=== PATIENT | male | born 1940 | race Two or more races ===

== ENCOUNTER 2019-11-23 17:40 | Inpatient (IN) | payer OTHER, MEDICAID ==
[~2019-11-23] VITALS: Ht 170.2 cm; Wt 94.4 kg
[~2019-11-23 17:40] MED LIST: ASP81EC PO; CARV25TA PO; CLOP75TA28 PO; FERR325T47 PO; FEXO-38 PO; FOLI1TAB6 PO; FURO40TA4 PO; GEMF600T7 PO; GLYB5TAB66 PO; ISOS20TA56 PO; LANTUS SC; METO-281 PO; NOVOLOG SC; NYSTPOW9; PHEN100C70 PO; POTA8TAB2 PO; RAMI5CAP18 PO; TERA2CAP45 PO; TRAM50TA2 PO
[2019-11-23 19:01] LABS: Basophils # (auto) 0.1 10 ^3/uL (0-0.2); Basophils % (auto) 0.8 % (0.0-2.0); Eosinophils # (auto) 0.2 10 ^3/uL (0-0.8); Eosinophils % (auto) 2.3 % (0.0-7.0); Hematocrit 35.9 % (41.0-53.0); Hemoglobin 12.3 g/dL (13.5-17.5); Lymphocytes # (auto) 1.4 10 ^3/uL (0.4-5.4); Lymphocytes % (auto) 20.6 % (10.0-50.0); Mean Corpuscular Hemoglobin 33.1 pg (28.0-32.0); Mean Corpuscular Hgb Conc. 34.2 g/dL (32.0-36.0); Mean Corpuscular Volume 96.6 fL (80.0-100.0); Monocytes # (auto) 0.5 10 ^3/uL (0-1.3); Monocytes % (auto) 8.2 % (0.0-12.0); Neutrophils # (auto) 4.5 10 ^3/uL (1.6-8.6); Neutrophils % (auto) 68.1 % (37.0-80.0); Platelet Count (auto) 180 10^3/uL (140-450); Red Blood Cells 3.72 10^6/uL (4.5-5.90); Red Cell Distribution Width 13.4 % (11.8-14.3); White Blood Cell 6.5 10^3/uL (4.4-10.8)
[2019-11-23 19:03] LABS: Urine Bacteria FEW /hpf (None Seen); Urine Blood Negative /uL (Negative); Urine Specific Gravity 1.006 (1.001-1.035); Urine WBC <1 /hpf (0 - 3)
[2019-11-23 19:25] LABS: INR 0.94 (0.9-1.15); Partial Thromboplastin Time 26.9 sec (23.64-32.05)
[2019-11-23 19:29] LABS: Calcium 8.7 mg/dL (8.5-10.1); Potassium 4.7 mmol/L (3.5-5.1)
[2019-11-23 19:38] LABS: Albumin 3.3 g/dL (3.4-5.0); BUN/Creatinine Ratio 23.7; Bilirubin, Total 0.4 mg/dL (0.2-1.0); Magnesium 2.3 mg/dL (1.6-2.6); Total Protein 7.1 g/dL (6.4-8.2)
[2019-11-23 20:32] LABS: Lactic Acid w/Reflex 3.3 mmol/L (0.4-2.0)
[2019-11-23] MEDS ORDERED: VANCOMYCIN PER PHARMACY 1,000 MG IV SCH (21:00)
[2019-11-23] MEDS ORDERED: LORazepam 2MG/ML-1ML VIAL IV ONE (21:00)
[2019-11-23] MEDS ORDERED: SODIUM CHLORIDE 0.9% 2,850 ML IV ONE (21:00)
[2019-11-23 21:28] LABS: Alcohol, Urine < 3.0 mg/dL (0-5); Amphetamine Screen, Urine NEGATIVE (NEGATIVE); Barbiturate Scree,Urine NEGATIVE (NEGATIVE); Benzodiazephine Screen, Urine NEGATIVE (NEGATIVE); Cannabinoid Screen, Urine NEGATIVE (NEGATIVE); Cocaine Screen, Urine NEGATIVE (NEGATIVE); Opiate Scree,Urine NEGATIVE (NEGATIVE); Phencyclidine Screen, Urine NEGATIVE (NEGATIVE)
[2019-11-23] MEDS ORDERED: VANCOMYCIN 1GM/250ML 250 ML IV ONE (21:45)
[2019-11-23] MEDS: PIPERACILLIN-TAZOB 3.375GM 100 ML IV SCH (22:46)
[2019-11-23] MEDS ORDERED: NITROGLYCERIN 0.4 MG SL TAB SL PRN (23:00)
[2019-11-23] MEDS ORDERED: DEXTROSE (50%) 50ML SYRG IV PRN (23:00)
[2019-11-23] MEDS ORDERED: TEMAZEPAM 15 MG CAP PO PRN (23:00)
[2019-11-23] MEDS ORDERED: ONDANSETRON HCL 4 MG/2 ML VIAL IV PRN (23:00)
[2019-11-23] MEDS ORDERED: MORPHINE SULF INJ 2 MG/ML SYRINGE 1ML IV PRN (23:00)
[2019-11-23] MEDS ORDERED: ATORVASTATIN 20 MG TAB PO ONE (23:00)
[2019-11-24] MEDS: ACETAMINOPHEN 325 MG TAB PO PRN ×2 (00:18→06:45)
--- NOTE | 2019-11-24 00:30 | NUR ---
Telemetry admit from ER DARBY SCHULTZ admitted to Telemetry unit. Patient oriented to BASIA WEST RN primary RN, [facility] unit, room 247, bed A, and unit policies regarding patient care, no smoking and visiting hours. Patient now on continuous telemetry monitoring, tele box # 6 and telemetry reading on arrival to unit is Sinus Rhythm @ the 90's per minute. Patient placed on bedside oxygen @ 2L/NC continuous, weighed by bedscale and encouraged to call if they need something. All questions and concerns addressed, patient partially verbalized understanding.
[2019-11-24] MEDS: ACCU-CHEK COMFORT CURVE STRIP VI SCH ×5 (01:27→23:43)
[2019-11-24 01:28] LABS: Lactic Acid w/Reflex 2.4 mmol/L (0.4-2.0)
[2019-11-24 01:32] VITALS: BP 150/81
[2019-11-24] MEDS: InsuLIN REG 1unit/0.01ml Soln (100units/ml) SC SCH ×5 (01:42→23:47)
--- NOTE | 2019-11-24 03:40 | NUR ---
Med-rec. Pt. is confused, unable to give us information about medication reconcilliation. Will call the girlfriend Lis Ceja to bring list of medications later this morning.
[2019-11-24 04:50] VITALS: BP 140/77
[2019-11-24] MEDS: PIPERACILLIN-TAZOB 3.375GM 100 ML IV SCH (04:59)
[2019-11-24] MEDS ORDERED: FUROSEMIDE 40 MG TAB PO SCH (06:00)
[2019-11-24 06:53] LABS: Basophils # (auto) 0.1 10 ^3/uL (0-0.2); Eosinophils # (auto) 0.1 10 ^3/uL (0-0.8); Eosinophils % (auto) 1.6 % (0.0-7.0); Hemoglobin 11.4 g/dL (13.5-17.5); Lymphocytes # (auto) 1.6 10 ^3/uL (0.4-5.4); Lymphocytes % (auto) 27.6 % (10.0-50.0); Mean Corpuscular Hemoglobin 33.2 pg (28.0-32.0); Mean Corpuscular Hgb Conc. 34.4 g/dL (32.0-36.0); Mean Corpuscular Volume 96.5 fL (80.0-100.0); Monocytes # (auto) 0.5 10 ^3/uL (0-1.3); Monocytes % (auto) 8.3 % (0.0-12.0); Neutrophils # (auto) 3.5 10 ^3/uL (1.6-8.6); Neutrophils % (auto) 61.5 % (37.0-80.0); Nucleated Red Blood Cells % 0.1 %; Platelet Count (auto) 161 10^3/uL (140-450); Red Blood Cells 3.41 10^6/uL (4.5-5.90); Red Cell Distribution Width 13.4 % (11.8-14.3); White Blood Cell 5.7 10^3/uL (4.4-10.8)
[2019-11-24 07:07] LABS: Calcium 8.2 mg/dL (8.5-10.1)
[2019-11-24 07:09] LABS: BUN/Creatinine Ratio 23.3
--- NOTE | 2019-11-24 09:05 | NUR ---
ASSUMED CARE. APPEARS SLEEPING. EYEBROWS FURROWED. SITTER IN THE ROOM REPORTS HE WAS UNCOMFORTABLE, UNABLE TO REST EARLIER AND HAS JUST FALLEN ASLEEP. TELE MONITOR SHOWS NSR 70'S WITH WIDE QRS. RECEIVED CALL FROM DAUGHTER WHO LIVES IN [facility]. SHE OFFERS HX BASELINE HIGH FUNTIONING. THAT PATIENT IS VERY INDEPENDANT DRIVES DAILY, TAKES MULTIPLE TRIPS DURING THE DAY AND TO EAT OUT. HE HAS THE PRACTICE OF WEARING PJ UNDER HIS PANTS FOR ADDED WARMTH.
[2019-11-24] MEDS ORDERED: ASPirin 81 mg TAB PO SCH (10:00)
[2019-11-24] MEDS: ISOSORBIDE DINITRATE 10 MG TAB PO SCH ×2 (11:00→22:20)
[2019-11-24] MEDS: CARVEDILOL 12.5 MG TAB PO SCH ×2 (11:00→22:18)
[2019-11-24] MEDS: PANTOPRAZOLE 40 MG TAB PO SCH (11:00)
--- NOTE | 2019-11-24 11:38 | NUR ---
to radiology via
--- NOTE | 2019-11-24 11:39 | NUR ---
portable chest xray
[2019-11-24] MEDS ORDERED: levoFLOXacin 250MG 50 ML IV SCH (11:45)
[2019-11-24] MEDS ORDERED: levoFLOXacin 250MG 50 ML IV ONE (11:45)
[2019-11-24 13:00] VITALS: BP 93/51
--- NOTE | 2019-11-24 13:59 | NUR ---
IN [facility] FOR TEST. RESULTED POSITIVE FOR INFLUENZA A. ASSIGNED TO ROOM 232. DROPLET PRECAUTIONS. CARDIAC CONSULT CALLED IN.
[2019-11-24] MEDS: metroNIDAZOLE 500MG/100ML 100 ML IV SCH ×3 (14:00→22:09)
--- NOTE | 2019-11-24 14:15 | NUR ---
PT REMAINS OFF FLOOR UNABLE TO INFUSE MAINTENANCE FLUIDS OR IV ANTIBIOTICS UNTIL RETURNING FROM TESTING.
[2019-11-24] MEDS ORDERED: OSELTAMIVIR 75 MG CAP PO ONE (15:30)
--- NOTE | 2019-11-24 16:05 | NUR ---
RECEIVED INTO ROOM 232. RESUMED IV FLUIDS ORDERED. PLACED BACK ON TELE MONITOR. NEW ORDER FOR TAMAFLU GIVEN.
[2019-11-24 16:49] VITALS: BP 95/46
--- NOTE | 2019-11-24 19:10 | NUR ---
Received report from the Day Shift RN Piter. Initial assessment done. Pt. resting in bed, sleeping, with HOB up @ 35-45 degrees angle, arousable by name and slight touch, mildly confused, oriented x 2 by name and situation. Pt. @ 2-3L/NC continuous. Breathing regular with mild sob, positive for Influenza A an is on droplet isolation. Pt. denies chest pain and on Tele # 6 , SR @ the 60 's per minute @ the monitor. IVF of NS @ 100 ml./hr. continuous attached/connected to the LAC G # 20. Pt. daughter Manisha gave phone number to the staff with tel. # . Pt. general skin intact. No s/s of pressure ulcer or decub. Pt. with mod. assist with hygiene and toileting. Able to use urinal @ the bedside, no BM @ this time. Abdominla soft, rounded and non-tender. Pt. on CCHO diet and will monitor accucheck q 6 hrs. as ordered by the Doctor. Pt. provided bedside nsg. care and assisted with needs. Maintained pt. safety, bed alarms on, and call-light within pt.'s reach.
--- NOTE | 2019-11-24 19:30 | NUR ---
Pt. on Droplet Isolation Precaution since pt. is (+) positive for Influenza A virus. Pt. is calm and sleeping easily arousable to the name and light touch/sound.
[2019-11-24] MEDS ORDERED: VANCOMYCIN 1GM/250ML 250 ML IV SCH (20:00)
--- NOTE | 2019-11-24 20:00 | NUR ---
Complete assessment done and completed. Pt. resting and sleeping. Continuous with 02 @ 2 L/NC, no s/s of sob, pt. breathing regular and unlabored with lung sounds diminished @ both upper and lower lobes. Pt. denies pain and returned to sleep. Pt. SR-SB-SR with BBB @ the 50's to low 60's per minute. Maintained pt. safety with call-light within pt.'s reach and bed alarms on.
--- NOTE | 2019-11-24 20:00 | NUR ---
Assessment done and completed. Pt. resting and sleeping in bed. Tele # 6 , SB-SR @ 50's to 60's per minute @ the monitor with BBB. Pt. denies pain when assessed. Keep pt. safe and infrastructure director bed. Keep room environment quiet and dim-lighted.
--- NOTE | 2019-11-24 21:00 | NUR ---
Daughter Yu from [facility] called with telephone # to the [facility] and spoken to RN mckay Toro. Pt. daughter was showing concern and support to father's hospitalization. Will call her back or yu can call back @ around 0600 Am tomorrow.
[2019-11-24 21:32] VITALS: BP 100/50
[2019-11-24] MEDS: SODIUM CHLORIDE 0.9% 1,000 ML IV SCH (21:50)
--- NOTE | 2019-11-24 22:18 | NUR ---
Meds. as scheduled given/administered @ around this time. Pt. provided explanation to the use of the meds. meds. given. pt. verbalized partial understanding.
--- NOTE | 2019-11-24 22:18 | NUR ---
Meds. as scheduled administered. Pt. provided explanation of the meds. given in [place] words that pt. will understand. Pt. partially understand but still with mild confusion and looks drowsy and sleepy. Siderails up x 2 for safety with bed alarms on and call-light @ the bedside.
[2019-11-24] MEDS: ATORVASTATIN 20 MG TAB PO SCH (22:20)
[2019-11-24] MEDS: OSELTAMIVIR 30 MG CAP PO SCH (22:50)
--- NOTE | 2019-11-24 23:41 | NUR ---
Accuchecks taken with result BS = 179 , given 3 units of Regular Human insulin per s/s.
[2019-11-25 04:33] VITALS: BP 102/54
[2019-11-25] MEDS ORDERED: CARV6.2551 PO (04:57)
[2019-11-25] MEDS ORDERED: KETO0.0233 OP (05:46)
[2019-11-25] MEDS ORDERED: ACET325T82 PO (05:46)
[2019-11-25] MEDS ORDERED: CICL8KIT4 EX (05:46)
[2019-11-25] MEDS ORDERED: ASPI325T4 PO (05:46)
[2019-11-25] MEDS ORDERED: LOSA25TA8 PO (05:46)
[2019-11-25] MEDS ORDERED: DIVA500T12 PO (05:46)
[2019-11-25] MEDS ORDERED: FOLITAB22 PO (05:46)
[2019-11-25] MEDS ORDERED: ATO40T PO (05:46)
[2019-11-25] MEDS ORDERED: ISOS20TA49 PO (05:46)
[2019-11-25] MEDS ORDERED: CLOP75TA41 PO (05:46)
[2019-11-25] MEDS ORDERED: OXYB5TAB24 PO (05:46)
[2019-11-25] MEDS ORDERED: FURO40TA4 PO (05:46)
[2019-11-25] MEDS ORDERED: POTA8TAB2 PO (05:46)
[2019-11-25] MEDS ORDERED: TOPI25TA32 PO (05:46)
[2019-11-25] MEDS ORDERED: FLUT1SPR5 (05:46)
[2019-11-25] MEDS ORDERED: TER5T PO (05:46)
[2019-11-25] MEDS ORDERED: INSLANTI SC (05:46)
--- NOTE | 2019-11-25 06:10 | NUR ---
Daughter Manisha called again and RN. Toro had spoken to her and gave her updates of her father labs. and imaging results yesterday. Manisha was glad that report was,. Pt. is negative for VDT, negative for brain infarcts, negative for intracranial bleeding, most results showed and brought good news to the Daughter. Daughter appreciated help and sent her regards to her Father. Elsie Dyer thanking JASON Toro.
[2019-11-25 06:38] LABS: Basophils # (auto) 0.1 10 ^3/uL (0-0.2); Basophils % (auto) 0.9 % (0.0-2.0); Eosinophils # (auto) 0.2 10 ^3/uL (0-0.8); Eosinophils % (auto) 3.7 % (0.0-7.0); Hematocrit 32.1 % (41.0-53.0); Hemoglobin 11.1 g/dL (13.5-17.5); Lymphocytes # (auto) 1.9 10 ^3/uL (0.4-5.4); Mean Corpuscular Hemoglobin 33.6 pg (28.0-32.0); Mean Corpuscular Hgb Conc. 34.5 g/dL (32.0-36.0); Mean Corpuscular Volume 97.4 fL (80.0-100.0); Monocytes # (auto) 0.4 10 ^3/uL (0-1.3); Monocytes % (auto) 7.4 % (0.0-12.0); Neutrophils # (auto) 3.4 10 ^3/uL (1.6-8.6); Nucleated Red Blood Cells % 0.1 %; Platelet Count (auto) 152 10^3/uL (140-450); Red Blood Cells 3.29 10^6/uL (4.5-5.90); Red Cell Distribution Width 13.3 % (11.8-14.3)
[2019-11-25 06:43] LABS: Potassium 4.3 mmol/L (3.5-5.1)
[2019-11-25 06:52] LABS: BUN/Creatinine Ratio 25.7; Bilirubin, Total 0.4 mg/dL (0.2-1.0); Total Protein 6.1 g/dL (6.4-8.2)
[2019-11-25] MEDS: ACCU-CHEK COMFORT CURVE STRIP VI SCH ×4 (07:00→23:39)
[2019-11-25] MEDS: InsuLIN REG 1unit/0.01ml Soln (100units/ml) SC SCH ×4 (07:08→23:37)
--- NOTE | 2019-11-25 07:08 | NUR ---
Pt. accucheck taken with result of BS = 166 , given 3 units of Regular Human Insulin per s/s. Pt. made aware of his blood sugar result and the insulin coverage given. Pt. verbalized partial understanding. pt. retuned to sleep.
[2019-11-25] MEDS: metroNIDAZOLE 500MG/100ML 100 ML IV SCH (07:09)
[2019-11-25] MEDS: SODIUM CHLORIDE 0.9% 1,000 ML IV SCH (07:11)
--- NOTE | 2019-11-25 07:15 | NUR ---
Report given to the next Day Shift RN. Pt. resting and sleeping. No s/s of pain or discomfort. Will continue with present nsg. care. Still on Droplet Precaution/Isolation.
[2019-11-25 08:00] VITALS: BP 105/52
--- NOTE | 2019-11-25 08:00 | NUR ---
ASSESSMENT NOTE PT IS ALERT ORIENTED X4, RESTING IN BED COMFORTABLY, NO DISTRESS NOTED, ABLE TO VERBALIS HIS NEEDS, SELF REPOSITION, PAIN 0/10 AT THIS TIME, USE URINAL NEEDED, CALL LIGHT WITHIN REACH, PT ON DROPLET PRECAUTIONS / ISOLATION, MONITOR Q SHIFT AT ALL TIMES
--- NOTE | 2019-11-25 09:30 | NUR ---
IV insertion IV access obtained, via clean sterile technique by inserting 22 gauge catheter at after 1 attempt(s). IV secured properly. No trauma to site. Patient tolerated procedure well.
[2019-11-25] MEDS: ASPirin 81 mg TAB PO SCH (09:44)
[2019-11-25] MEDS: CARVEDILOL 12.5 MG TAB PO SCH ×2 (09:45→22:00)
[2019-11-25] MEDS: ISOSORBIDE DINITRATE 10 MG TAB PO SCH ×2 (09:45→22:00)
[2019-11-25] MEDS: PANTOPRAZOLE 40 MG TAB PO SCH (09:46)
[2019-11-25] MEDS: OSELTAMIVIR 30 MG CAP PO SCH ×2 (09:46→21:47)
[2019-11-25] MEDS ORDERED: levoFLOXacin 250MG 50 ML IV SCH ×2 (10:00)
--- NOTE | 2019-11-25 11:45 | NUR ---
DR HAMEED AT BED SIDE FOLLOWING UP ON PT, INFORM PT THAT HE WILL BE TRANSFER TO [facility] WHEN BED IS AVAILABLE
[2019-11-25] MEDS: ACETAMINOPHEN 325 MG TAB PO PRN ×2 (12:02→20:40)
[2019-11-25 13:00] VITALS: BP 99/52
--- NOTE | 2019-11-25 13:14 | NUR ---
1300 11/25/19 Faxed Transfer order and Notice regarding Post Stabilization to [facility]. Faxed today's MD progress notes, labs, vitals and medication list to [facility].
--- NOTE | 2019-11-25 16:35 | NUR ---
CANDIS ZAIDI FROM [facility] CALLED TO GET INFORMATION ABOUT PT, REPORT GIVEN TO HER ALONG WITH THE LATEST VITAL SIGNS
[2019-11-25 17:00] VITALS: BP 103/39
--- NOTE | 2019-11-25 17:37 | NUR ---
PT IS RESTING IN BED COMFORTABLY, NO DISTRESS NOTED
--- NOTE | 2019-11-25 18:46 | NUR ---
PT CONTINUE STABLE, CONTINUE MONITORING
[2019-11-25 21:17] VITALS: BP 112/56
[2019-11-25] MEDS: ATORVASTATIN 20 MG TAB PO SCH (21:47)
[2019-11-25] MEDS: HYDROcodone-ACET 5/325MG TAB PO PRN (21:59)
--- NOTE | 2019-11-25 22:00 | NUR ---
PATIENT COMPLAINING OF TESTICULAR PAIN PATIENT STATED THAT PAIN IS 6-7/10. PATIENT STATES PAIN HAS BEEN GOING ON FOR ABUT A MONTH AND A HALF AFTER A SURGERY. PATIENT STATES THAT THEY TAKE NORCO IS GIVEN FOR PAIN AT HOME. HOSPITALIST CONTACTED FOR ORDERS. PATIENT ALSO BLADDER SCANNED. NO VOLUME NOTED AT THIS TIME. PATIENT STATES PRESSURE BUT NO NEED TO URINATE. WILL CONTINUE TO MONITOR.
[2019-11-26] MEDS: HYDROcodone-ACET 5/325MG TAB PO PRN (04:34)
--- NOTE | 2019-11-26 04:35 | NUR ---
PATIENT STATING PAIN IS 6-7/10 PATIENT STATES THE NORCO MEDICATION HAS BEEN WHAT PATIENT USES AT HOME. PATIENT REQUESTING NORCO. WILL ADMINISTER AT THIS TIME.
[2019-11-26 05:32] VITALS: BP 128/64
[2019-11-26] MEDS: InsuLIN REG 1unit/0.01ml Soln (100units/ml) SC SCH ×2 (06:00→11:49)
[2019-11-26] MEDS: ACCU-CHEK COMFORT CURVE STRIP VI SCH ×2 (06:02→12:00)
--- NOTE | 2019-11-26 07:30 | NUR ---
Opening Shift Note Assumed care of patient, awake and alert. No S/S of distress/SOB or pain. Instructed on POC and to call for assist PRN, will continue to monitor for changes Q1hr and PRN.
[2019-11-26 08:30] VITALS: BP 113/63
--- NOTE | 2019-11-26 09:46 | NUR ---
0930 11/26/19 Faxed transfer order and Notification Regarding Post Stabilization to [facility] ([phone] and [phone] provided to me by it quality analystalison Mcintosh). I faxed today's labs, vitals and medication list to [facility].
[2019-11-26] MEDS: CARVEDILOL 12.5 MG TAB PO SCH (10:00)
[2019-11-26] MEDS: ISOSORBIDE DINITRATE 10 MG TAB PO SCH (10:00)
[2019-11-26] MEDS: OSELTAMIVIR 30 MG CAP PO SCH (11:13)
[2019-11-26] MEDS: PANTOPRAZOLE 40 MG TAB PO SCH (11:13)
[2019-11-26] MEDS: ASPirin 81 mg TAB PO SCH (11:13)
[2019-11-26] MEDS ORDERED: TAMIF30 PO (12:25)
[2019-11-26 12:30] VITALS: BP 124/63
--- NOTE | 2019-11-26 14:39 | NUR ---
Faxed home health order to [facility].
== END 2019-11-26 16:45 | disposition home health service (06) | DRG 280 ==
LOC: ER 17:40 → EDBD 17:40 → TELE 17:41 → TELE-EAST 23:43
PROVIDERS: ADMIT Nurse Practitioner; ATTEND Internal Medicine
DX: I21.4 Non-ST elevation (NSTEMI) myocardial infarction (principal); G93.41 Metabolic encephalopathy; N17.0 Acute kidney failure with tubular necrosis; I13.0 Hypertensive heart and chronic kidney disease with heart failure and stage 1 through stage 4 chronic kidney disease, or unspecified chronic kidney disease; I50.20 Unspecified systolic (congestive) heart failure; E44.1 Mild protein-calorie malnutrition; D64.9 Anemia, unspecified; E11.22 Type 2 diabetes mellitus with diabetic chronic kidney disease; E11.65 Type 2 diabetes mellitus with hyperglycemia; J10.1 Influenza due to other identified influenza virus with other respiratory manifestations; N18.3 Chronic kidney disease, stage 3 (moderate); E66.9 Obesity, unspecified; E78.5 Hyperlipidemia, unspecified; E78.00 Pure hypercholesterolemia, unspecified; I25.10 Atherosclerotic heart disease of native coronary artery without angina pectoris; I25.2 Old myocardial infarction; Z82.49 Family history of ischemic heart disease and other diseases of the circulatory system; Z83.3 Family history of diabetes mellitus; Z90.49 Acquired absence of other specified parts of digestive tract; Z98.61 Coronary angioplasty status; Z86.73 Personal history of transient ischemic attack (TIA), and cerebral infarction without residual deficits; Z68.32 Body mass index [BMI] 32.0-32.9, adult
CPT/HCPCS: 36415; 36600; 70450; 70551; 71045; 71250; 72125; 74176; 78582; 80048; 80053; 80307; 80320; 81001; 82010; 82140; 82550; 82805; 82962; 83036; 83605; 83735; 83880; 84443; 84484; 85025; 85379; 85610; 85730; 87040; 87086; 87804; 93005; 93306; 93970; 96361; 96365; 96367; 96375; 97163; G0378; G9035; J1815; J2543; J3490

== ENCOUNTER 2021-01-04 08:16 | Inpatient (IN) | payer OTHER, MEDICAID ==
[~2021-01-04] VITALS: Ht 177.8 cm; Wt 102.2 kg
[2021-01-04] VITALS (17 sets, daily range): BP systolic 98–155; BP diastolic 54–94
[~2021-01-04 08:16] MED LIST changes: +ACET325T82 PO; -ASP81EC PO; +ASPI-394 PO; +ATO40T PO; -CARV25TA PO; +CICL8KIT4 EX; -CLOP75TA28 PO; +CLOP75TA70 PO; +DIVA500T12 PO; -FERR325T47 PO; +FLUT1SPR5; -FOLI1TAB6 PO; +FOLITAB22 PO; +GEMF-19 PO; -GEMF600T7 PO; -GLYB5TAB66 PO; +INSLANTI SC; +ISOS20TA49 PO; -ISOS20TA56 PO; +KETO0.0233 OP; -LANTUS SC; -NOVOLOG SC; -NYSTPOW9; +OXYB5TAB24 PO; +PHEN100C PO; -PHEN100C70 PO; -RAMI5CAP18 PO; +TAMIF30 PO; +TERA5CAP PO
[2021-01-04] MEDS ORDERED: ANGIOMAX 250 MG VIAL IV ONE (08:29)
[2021-01-04] MEDS ORDERED: MIDAZOLAM HCL 1MG/1ML-2 ML VIAL ONE (08:29)
[2021-01-04] MEDS ORDERED: VERAPAMIL 2.5MG/ML INJ 2ML VIAL IV ONE (08:29)
[2021-01-04] MEDS ORDERED: HEPARIN SODIUM (PORCINE) 5000 UNITS/ML 1ML VIAL ONE (08:29)
[2021-01-04] MEDS ORDERED: fentaNYL CITRATE 100 MCG/2 ML VL ONE (08:29)
[2021-01-04] MEDS ORDERED: SODIUM CHL 0.9% 50 ML ONE (08:30)
[2021-01-04] MEDS ORDERED: LIDOCAINE 2%HCL (LOCAL ANESTH.) INJ 20ML MDV ONE (08:30)
[2021-01-04] MEDS ORDERED: ASPirin 325 MG TAB PO ONE (08:30)
[2021-01-04] MEDS ORDERED: IODIXANOL 320MG/ML 100ML BTL IV ONE (08:30)
[2021-01-04] MEDS ORDERED: HEPARIN SODIUM (PORCINE) 5000 UNITS/ML 1ML VIAL IV ONE ×2 (08:30→08:45)
[2021-01-04] MEDS ORDERED: HYDROmorphone HCL 2 MG/ML VL ONE (08:35)
[2021-01-04 08:39] LABS: Basophils # (auto) 0.1 10 ^3/uL (0-0.2); Basophils % (auto) 0.5 % (0.0-2.0); Eosinophils # (auto) 0.5 10 ^3/uL (0-0.8); Eosinophils % (auto) 3.3 % (0.0-7.0); Hematocrit 41.5 % (41.0-53.0); Hemoglobin 13.9 g/dL (13.5-17.5); Lymphocytes # (auto) 2.3 10 ^3/uL (0.4-5.4); Lymphocytes % (auto) 15.5 % (10.0-50.0); Mean Corpuscular Hemoglobin 32.4 pg (28.0-32.0); Mean Corpuscular Hgb Conc. 33.4 g/dL (32.0-36.0); Mean Corpuscular Volume 97.1 fL (80.0-100.0); Monocytes # (auto) 0.6 10 ^3/uL (0-1.3); Monocytes % (auto) 4.3 % (0.0-12.0); Neutrophils # (auto) 11.4 10 ^3/uL (1.6-8.6); Neutrophils % (auto) 76.4 % (37.0-80.0); Nucleated Red Blood Cells % 0.1 %; Platelet Count (auto) 214 10^3/uL (140-450); Red Blood Cells 4.28 10^6/uL (4.5-5.90); Red Cell Distribution Width 13.5 % (11.8-14.3); White Blood Cell 14.9 10^3/uL (4.4-10.8)
[2021-01-04] MEDS ORDERED: HYDROmorphone HCL 2 MG/ML VL IV ONE (08:45)
[2021-01-04] MEDS ORDERED: MORPHINE SULFATE 4 MG/ML SYR/VIAL IV ONE (08:45)
[2021-01-04] MEDS ORDERED: ONDANSETRON HCL 4 MG/2 ML VIAL IV ONE (08:45)
[2021-01-04 08:53] LABS: INR 0.94 (0.9-1.15); Partial Thromboplastin Time 23.9 sec (23.0-31.2)
[2021-01-04 08:57] LABS: Albumin 3.3 g/dL (3.4-5.0); Calcium 8.2 mg/dL (8.5-10.1); Magnesium 2.3 mg/dL (1.6-2.6); Potassium 4.4 mmol/L (3.5-5.1)
[2021-01-04 09:01] LABS: BUN/Creatinine Ratio 24.7; Bilirubin, Total 0.5 mg/dL (0.2-1.0); Total Protein 6.5 g/dL (6.4-8.2)
[2021-01-04] MEDS ORDERED: TICAGRELOR 90 MG TAB ONE ×2 (09:08→09:12)
[2021-01-04] MEDS ORDERED: MORPHINE SULF INJ 2 MG/ML SYRINGE 1ML IV PRN (09:30)
[2021-01-04] MEDS ORDERED: SODIUM CHLORIDE 0.9% 1,000 ML IV SCH (09:30)
[2021-01-04] MEDS ORDERED: NITROGLYCERIN 0.4 MG SL TAB SL PRN ×2 (09:30→10:15)
[2021-01-04] MEDS ORDERED: OSEL30CA2 PO (14:16)
[2021-01-04] MEDS ORDERED: ATOR-47 PO (14:17)
[2021-01-04] MEDS ORDERED: TAMS1CAP25 PO (14:21)
[2021-01-04] MEDS ORDERED: TOPI50TA53 PO (14:22)
[2021-01-04] MEDS ORDERED: ALL100T PO (14:23)
[2021-01-04] MEDS ORDERED: CITA-243 PO (14:23)
[2021-01-04] MEDS ORDERED: CARV6.2551 PO (14:24)
[2021-01-04] MEDS: SODIUM CHLOR 0.9% PF (SALINE LOCK) 10ML VIAL/SYR IV SCH ×2 (15:28→21:49)
[2021-01-04] MEDS: ONDANSETRON HCL 4 MG/2 ML VIAL IV PRN (16:20)
[2021-01-04] MEDS: MORPHINE SULF INJ 2 MG/ML SYRINGE 1ML IV PRN ×3 (16:20→22:01)
[2021-01-04] MEDS ORDERED: DEXTROSE (50%) 50ML SYRG IV PRN (16:30)
[2021-01-04] MEDS: InsuLIN REG 1unit/0.01ml Soln (100units/ml) SC SCH ×2 (17:47→21:51)
[2021-01-04] MEDS: ACCU-CHEK COMFORT CURVE STRIP VI SCH ×2 (17:47→21:50)
[2021-01-04] MEDS ORDERED: CLOPIDOGREL 300 MG TAB PO ONE (18:00)
[2021-01-04] MEDS ORDERED: ALUM & MAG HYDROX-SIMETH LIQ(MAALOX) 30 ML PO PRN (19:15)
[2021-01-04] MEDS: ATORVASTATIN 20 MG TAB PO SCH (21:49)
[2021-01-04] MEDS: SODIUM CHLORIDE 0.9% 1,000 ML IV SCH (23:00)
[2021-01-05] VITALS (14 sets, daily range): BP systolic 107–148; BP diastolic 60–84
[2021-01-05 04:26] LABS: Basophils # (auto) 0.1 10 ^3/uL (0-0.2); Basophils % (auto) 0.4 % (0.0-2.0); Eosinophils # (auto) 0.1 10 ^3/uL (0-0.8); Eosinophils % (auto) 0.4 % (0.0-7.0); Hematocrit 40.4 % (41.0-53.0); Hemoglobin 13.7 g/dL (13.5-17.5); Lymphocytes # (auto) 1.8 10 ^3/uL (0.4-5.4); Lymphocytes % (auto) 13.9 % (10.0-50.0); Mean Corpuscular Hemoglobin 33.2 pg (28.0-32.0); Mean Corpuscular Volume 97.7 fL (80.0-100.0); Monocytes # (auto) 0.8 10 ^3/uL (0-1.3); Monocytes % (auto) 5.9 % (0.0-12.0); Neutrophils # (auto) 10.5 10 ^3/uL (1.6-8.6); Neutrophils % (auto) 79.4 % (37.0-80.0); Nucleated Red Blood Cells % 0.3 %; Platelet Count (auto) 183 10^3/uL (140-450); Red Blood Cells 4.14 10^6/uL (4.5-5.90); Red Cell Distribution Width 13.7 % (11.8-14.3); White Blood Cell 13.3 10^3/uL (4.4-10.8)
[2021-01-05 04:44] LABS: Albumin 3.1 g/dL (3.4-5.0); Calcium 7.9 mg/dL (8.5-10.1); Magnesium 2.3 mg/dL (1.6-2.6); Potassium 4.2 mmol/L (3.5-5.1)
[2021-01-05 05:04] LABS: BUN/Creatinine Ratio 25.2; Bilirubin, Total 0.6 mg/dL (0.2-1.0); Total Protein 6.3 g/dL (6.4-8.2)
[2021-01-05] MEDS: SODIUM CHLOR 0.9% PF (SALINE LOCK) 10ML VIAL/SYR IV SCH ×3 (06:03→21:49)
[2021-01-05] MEDS: ACCU-CHEK COMFORT CURVE STRIP VI SCH ×4 (06:03→21:51)
[2021-01-05] MEDS: InsuLIN REG 1unit/0.01ml Soln (100units/ml) SC SCH ×4 (06:04→22:13)
[2021-01-05] MEDS: ONDANSETRON HCL 4 MG/2 ML VIAL IV PRN (09:45)
[2021-01-05] MEDS: MORPHINE SULF INJ 2 MG/ML SYRINGE 1ML IV PRN ×2 (09:45→17:31)
[2021-01-05] MEDS: ASPirin 81 mg TAB PO SCH (10:39)
[2021-01-05] MEDS: CLOPIDOGREL BISULFATE 75 MG TAB PO SCH (10:40)
[2021-01-05] MEDS: PANTOPRAZOLE 40 MG TAB PO SCH (10:40)
[2021-01-05] MEDS: CARVEDILOL 3.125 MG TAB PO SCH ×2 (10:40→21:58)
[2021-01-05] MEDS: ENOXAPARIN SOD 40 MG/0.4 ML SYRINGE SC SCH (10:41)
[2021-01-05] MEDS ORDERED: OPTISON 3ml Vial for INJ IV ONE (10:58)
[2021-01-05] MEDS: TOPIRAMATE 25 MG TAB PO SCH ×2 (11:18→21:58)
[2021-01-05] MEDS: SODIUM CHLORIDE 0.9% 1,000 ML IV SCH (14:32)
[2021-01-05] MEDS: TAMSULOSIN HYDROCHLORIDE 0.4 MG CAP PO SCH (17:30)
[2021-01-05] MEDS ORDERED: HYDROcodone-ACET 5/325MG TAB PO ONE (18:30)
[2021-01-05] MEDS: ATORVASTATIN 20 MG TAB PO SCH (21:58)
[2021-01-05] MEDS: INSULIN LANTUS (GLARGINE) 1 /0.01ml (100units/ml) SC SCH (22:13)
[2021-01-06 05:00] VITALS: BP 98/55
[2021-01-06] MEDS: ACETAMINOPHEN 325 MG TAB PO PRN ×2 (05:11→20:38)
[2021-01-06] MEDS: SODIUM CHLOR 0.9% PF (SALINE LOCK) 10ML VIAL/SYR IV SCH ×3 (05:11→22:32)
[2021-01-06] MEDS: ACCU-CHEK COMFORT CURVE STRIP VI SCH ×4 (06:10→22:00)
[2021-01-06] MEDS: InsuLIN REG 1unit/0.01ml Soln (100units/ml) SC SCH ×4 (06:31→23:09)
[2021-01-06 07:18] LABS: Basophils # (auto) 0 10 ^3/uL (0-0.2); Basophils % (auto) 0.1 % (0.0-2.0); Eosinophils # (auto) 0 10 ^3/uL (0-0.8); Hematocrit 39.7 % (41.0-53.0); Hemoglobin 13.5 g/dL (13.5-17.5); Lymphocytes # (auto) 1.3 10 ^3/uL (0.4-5.4); Lymphocytes % (auto) 8.3 % (10.0-50.0); Mean Corpuscular Hemoglobin 33.4 pg (28.0-32.0); Mean Corpuscular Hgb Conc. 33.9 g/dL (32.0-36.0); Mean Corpuscular Volume 98.4 fL (80.0-100.0); Monocytes # (auto) 1.6 10 ^3/uL (0-1.3); Monocytes % (auto) 10.1 % (0.0-12.0); Neutrophils # (auto) 12.9 10 ^3/uL (1.6-8.6); Neutrophils % (auto) 81.5 % (37.0-80.0); Platelet Count (auto) 163 10^3/uL (140-450); Red Blood Cells 4.03 10^6/uL (4.5-5.90); Red Cell Distribution Width 13.8 % (11.8-14.3); White Blood Cell 15.8 10^3/uL (4.4-10.8)
[2021-01-06 07:19] LABS: Calcium 7.8 mg/dL (8.5-10.1); Potassium 4.8 mmol/L (3.5-5.1)
[2021-01-06 07:22] LABS: BUN/Creatinine Ratio 21.6
[2021-01-06 09:11] VITALS: BP 99/72
[2021-01-06] MEDS: ALLOPURINOL 100 MG TAB PO SCH (10:17)
[2021-01-06] MEDS: PANTOPRAZOLE 40 MG TAB PO SCH (10:17)
[2021-01-06] MEDS: ENOXAPARIN SOD 40 MG/0.4 ML SYRINGE SC SCH (10:17)
[2021-01-06] MEDS: ASPirin 81 mg TAB PO SCH (10:17)
[2021-01-06] MEDS: CLOPIDOGREL BISULFATE 75 MG TAB PO SCH (10:17)
[2021-01-06] MEDS: TOPIRAMATE 25 MG TAB PO SCH ×2 (10:17→22:38)
[2021-01-06] MEDS: SODIUM CHLORIDE 0.9% 1,000 ML IV SCH (10:23)
[2021-01-06 13:00] VITALS: BP 98/60
[2021-01-06] MEDS: CARVEDILOL 3.125 MG TAB PO SCH ×2 (13:26→22:00)
[2021-01-06 17:00] VITALS: BP 98/53
[2021-01-06] MEDS: TAMSULOSIN HYDROCHLORIDE 0.4 MG CAP PO SCH (18:49)
[2021-01-06 22:00] VITALS: BP 95/51
[2021-01-06] MEDS: ATORVASTATIN 20 MG TAB PO SCH (22:37)
[2021-01-06] MEDS: INSULIN LANTUS (GLARGINE) 1 /0.01ml (100units/ml) SC SCH (23:09)
[2021-01-07] VITALS (64 sets, daily range): BP systolic 85–160; BP diastolic 31–75
[2021-01-07] MEDS: SODIUM CHLORIDE 0.9% 1,000 ML IV SCH ×3 (01:27→17:40)
[2021-01-07] MEDS ORDERED: ATROPINE SULF 1 MG/10ml SYR IV ONE ×2 (05:45→10:14)
[2021-01-07] MEDS: DOPamine 1600MCG/ML D5W 250 ML IV SCH ×4 (06:00→12:50)
[2021-01-07] MEDS: SODIUM CHLOR 0.9% PF (SALINE LOCK) 10ML VIAL/SYR IV SCH ×3 (06:00→22:00)
[2021-01-07] MEDS: ACCU-CHEK COMFORT CURVE STRIP VI SCH ×3 (06:44→18:04)
[2021-01-07] MEDS: InsuLIN REG 1unit/0.01ml Soln (100units/ml) SC SCH ×3 (06:45→18:04)
[2021-01-07] MEDS: ONDANSETRON HCL 4 MG/2 ML VIAL IV PRN ×2 (07:00→21:55)
[2021-01-07] MEDS ORDERED: SODIUM CHLORIDE 0.9% 250 ML IV ONE (07:15)
[2021-01-07] MEDS ORDERED: DOPamine 1600mCg/ml 400MG/250ml NSorD5 KIT/BAG IV ONE (10:14)
[2021-01-07] MEDS ORDERED: EPINEPHrine HCL 1 MG/10 ML SYRG IV ONE (10:14)
[2021-01-07 10:19] LABS: Basophils # (auto) 0 10 ^3/uL (0-0.2); Basophils % (auto) 0.1 % (0.0-2.0); Eosinophils # (auto) 0 10 ^3/uL (0-0.8); Eosinophils % (auto) 0.1 % (0.0-7.0); Hematocrit 43.9 % (41.0-53.0); Hemoglobin 13.6 g/dL (13.5-17.5); Lymphocytes # (auto) 0.9 10 ^3/uL (0.4-5.4); Lymphocytes % (auto) 5.2 % (10.0-50.0); Mean Corpuscular Hemoglobin 32.7 pg (28.0-32.0); Mean Corpuscular Volume 105.5 fL (80.0-100.0); Monocytes # (auto) 1.3 10 ^3/uL (0-1.3); Monocytes % (auto) 7.7 % (0.0-12.0); Neutrophils # (auto) 15.1 10 ^3/uL (1.6-8.6); Neutrophils % (auto) 86.9 % (37.0-80.0); Nucleated Red Blood Cells % 0.1 %; Platelet Count (auto) 160 10^3/uL (140-450); Red Blood Cells 4.16 10^6/uL (4.5-5.90); Red Cell Distribution Width 14.4 % (11.8-14.3); White Blood Cell 17.4 10^3/uL (4.4-10.8)
[2021-01-07 10:23] LABS: Albumin 2.7 g/dL (3.4-5.0); Calcium 7.6 mg/dL (8.5-10.1); Potassium 4.9 mmol/L (3.5-5.1)
[2021-01-07] MEDS: ALLOPURINOL 100 MG TAB PO SCH (10:24)
[2021-01-07] MEDS: ASPirin 81 mg TAB PO SCH (10:24)
[2021-01-07] MEDS: PANTOPRAZOLE 40 MG TAB PO SCH (10:24)
[2021-01-07] MEDS: ENOXAPARIN SOD 40 MG/0.4 ML SYRINGE SC SCH (10:24)
[2021-01-07] MEDS: CLOPIDOGREL BISULFATE 75 MG TAB PO SCH (10:24)
[2021-01-07 10:27] LABS: BUN/Creatinine Ratio 23.2; Bilirubin, Total 1.2 mg/dL (0.2-1.0); Total Protein 5.9 g/dL (6.4-8.2)
[2021-01-07] MEDS ORDERED: BUMETANIDE 2.5mg/10ml (0.25 mg/ml) INJ IV ONE (10:30)
[2021-01-07] MEDS: TOPIRAMATE 25 MG TAB PO SCH ×2 (15:09→22:00)
[2021-01-07] MEDS: LACTULOSE 20Gm/30ML SOLN PO PRN (16:18)
[2021-01-07] MEDS: TAMSULOSIN HYDROCHLORIDE 0.4 MG CAP PO SCH (18:08)
[2021-01-07] MEDS: INSULIN LANTUS (GLARGINE) 1 /0.01ml (100units/ml) SC SCH (22:00)
[2021-01-07] MEDS: ATORVASTATIN 20 MG TAB PO SCH (22:00)
[2021-01-08] VITALS (80 sets, daily range): BP systolic 82–154; BP diastolic 15–82
[2021-01-08] MEDS: InsuLIN REG 1unit/0.01ml Soln (100units/ml) SC SCH ×5 (00:33→22:00)
[2021-01-08] MEDS: ACCU-CHEK COMFORT CURVE STRIP VI SCH ×5 (00:33→22:00)
[2021-01-08] MEDS ORDERED: IPRATROPIUM BROM 0.5 MG/2.5ML INH SOL NEB ONE (00:45)
[2021-01-08] MEDS ORDERED: ALBUTEROL SULF 2.5 MG/0.5ML(0.5%) NEB SOLN NEB ONE (00:45)
[2021-01-08] MEDS: LACTULOSE 20Gm/30ML SOLN PO PRN (00:47)
[2021-01-08] MEDS: ACETAMINOPHEN 325 MG TAB PO PRN (00:47)
[2021-01-08] MEDS ORDERED: FUROSEMIDE 40 MG/4 ML VIAL IV ONE (01:00)
[2021-01-08] MEDS ORDERED: FUROSEMIDE 40 MG/4 ML VIAL ONE (01:07)
[2021-01-08] MEDS ORDERED: ALBUTEROL SULF 2.5 MG/0.5ML(0.5%) NEB SOLN NEB PRN (04:00)
[2021-01-08] MEDS ORDERED: IPRATROPIUM BROM 0.5 MG/2.5ML INH SOL NEB PRN (04:00)
[2021-01-08 04:25] LABS: Basophils # (auto) 0.1 10 ^3/uL (0-0.2); Basophils % (auto) 0.3 % (0.0-2.0); Eosinophils # (auto) 0 10 ^3/uL (0-0.8); Hematocrit 42.3 % (41.0-53.0); Hemoglobin 14.1 g/dL (13.5-17.5); Lymphocytes # (auto) 1.5 10 ^3/uL (0.4-5.4); Lymphocytes % (auto) 9.4 % (10.0-50.0); Mean Corpuscular Hemoglobin 33.5 pg (28.0-32.0); Mean Corpuscular Hgb Conc. 33.4 g/dL (32.0-36.0); Mean Corpuscular Volume 100.3 fL (80.0-100.0); Monocytes # (auto) 1.5 10 ^3/uL (0-1.3); Monocytes % (auto) 9.1 % (0.0-12.0); Neutrophils # (auto) 13.2 10 ^3/uL (1.6-8.6); Neutrophils % (auto) 81.2 % (37.0-80.0); Nucleated Red Blood Cells % 0.1 %; Platelet Count (auto) 165 10^3/uL (140-450); Red Blood Cells 4.21 10^6/uL (4.5-5.90); Red Cell Distribution Width 13.8 % (11.8-14.3); White Blood Cell 16.3 10^3/uL (4.4-10.8)
[2021-01-08 04:48] LABS: Potassium 4.5 mmol/L (3.5-5.1)
[2021-01-08 05:01] LABS: Albumin 2.7 g/dL (3.4-5.0); BUN/Creatinine Ratio 23.9; Bilirubin, Total 1.1 mg/dL (0.2-1.0); Calcium 7.9 mg/dL (8.5-10.1); Total Protein 6.9 g/dL (6.4-8.2)
[2021-01-08] MEDS: SODIUM CHLOR 0.9% PF (SALINE LOCK) 10ML VIAL/SYR IV SCH ×3 (06:05→22:00)
[2021-01-08] MEDS: DOPamine 1600MCG/ML D5W 250 ML IV SCH ×2 (08:46→14:54)
[2021-01-08] MEDS: SODIUM CHLORIDE 0.9% 1,000 ML IV SCH (10:20)
[2021-01-08] MEDS: ALLOPURINOL 100 MG TAB PO SCH (10:35)
[2021-01-08] MEDS: TOPIRAMATE 25 MG TAB PO SCH ×2 (10:35→22:00)
[2021-01-08] MEDS: PANTOPRAZOLE 40 MG TAB PO SCH (10:35)
[2021-01-08] MEDS: CLOPIDOGREL BISULFATE 75 MG TAB PO SCH (10:35)
[2021-01-08] MEDS: ASPirin 81 mg TAB PO SCH (10:35)
[2021-01-08] MEDS: ENOXAPARIN SOD 40 MG/0.4 ML SYRINGE SC SCH (10:36)
[2021-01-08] MEDS: FUROSEMIDE 40 MG/4 ML VIAL IV SCH (10:36)
[2021-01-08] MEDS ORDERED: BISACODYL 10 MG RECT SUPP PR ONE ×2 (12:45→13:00)
[2021-01-08] MEDS ORDERED: POLYETHYLENE GLYCOL 17 GM PWDR PO ONE (18:00)
[2021-01-08] MEDS: LACTULOSE 20Gm/30ML SOLN PO SCH (18:18)
[2021-01-08] MEDS: TAMSULOSIN HYDROCHLORIDE 0.4 MG CAP PO SCH (18:18)
[2021-01-08] MEDS: ONDANSETRON HCL 4 MG/2 ML VIAL IV PRN (20:23)
[2021-01-08] MEDS: INSULIN LANTUS (GLARGINE) 1 /0.01ml (100units/ml) SC SCH (22:00)
[2021-01-08] MEDS: DOCUSATE SOD 100 MG CAP PO SCH (22:00)
[2021-01-08] MEDS: ATORVASTATIN 20 MG TAB PO SCH (22:00)
[2021-01-09] VITALS (54 sets, daily range): BP systolic 84–159; BP diastolic 21–81
[2021-01-09 04:22] LABS: Basophils # (auto) 0 10 ^3/uL (0-0.2); Basophils % (auto) 0.3 % (0.0-2.0); Eosinophils # (auto) 0 10 ^3/uL (0-0.8); Eosinophils % (auto) 0.2 % (0.0-7.0); Hematocrit 38.9 % (41.0-53.0); Hemoglobin 13.2 g/dL (13.5-17.5); Lymphocytes # (auto) 1.5 10 ^3/uL (0.4-5.4); Lymphocytes % (auto) 11.9 % (10.0-50.0); Mean Corpuscular Hemoglobin 33.5 pg (28.0-32.0); Mean Corpuscular Hgb Conc. 33.9 g/dL (32.0-36.0); Mean Corpuscular Volume 98.6 fL (80.0-100.0); Monocytes # (auto) 1.3 10 ^3/uL (0-1.3); Monocytes % (auto) 9.8 % (0.0-12.0); Neutrophils # (auto) 9.9 10 ^3/uL (1.6-8.6); Neutrophils % (auto) 77.8 % (37.0-80.0); Platelet Count (auto) 187 10^3/uL (140-450); Red Blood Cells 3.95 10^6/uL (4.5-5.90); Red Cell Distribution Width 13.7 % (11.8-14.3); White Blood Cell 12.8 10^3/uL (4.4-10.8)
[2021-01-09 04:50] LABS: Albumin 2.5 g/dL (3.4-5.0); BUN/Creatinine Ratio 27.2; Bilirubin, Total 1.2 mg/dL (0.2-1.0); Calcium 8.1 mg/dL (8.5-10.1); Magnesium 2.2 mg/dL (1.6-2.6); Total Protein 6.5 g/dL (6.4-8.2)
[2021-01-09] MEDS: LACTULOSE 20Gm/30ML SOLN PO SCH ×4 (06:00→18:00)
[2021-01-09] MEDS: SODIUM CHLOR 0.9% PF (SALINE LOCK) 10ML VIAL/SYR IV SCH ×3 (06:00→22:05)
[2021-01-09] MEDS: ACCU-CHEK COMFORT CURVE STRIP VI SCH ×4 (06:39→22:05)
[2021-01-09] MEDS: InsuLIN REG 1unit/0.01ml Soln (100units/ml) SC SCH ×4 (06:40→22:18)
[2021-01-09] MEDS: DOPamine 1600MCG/ML D5W 250 ML IV SCH ×2 (07:30→17:05)
[2021-01-09] MEDS ORDERED: SODIUM CHLORIDE LOCK 10 ML ONE (08:04)
[2021-01-09] MEDS ORDERED: LIDOCAINE VISCOUS 2% 15ML UD ONE (08:04)
[2021-01-09] MEDS ORDERED: MIDAZOLAM HCL 5 MG/ML-1ML VIAL ONE (08:05)
[2021-01-09] MEDS ORDERED: fentaNYL CITRATE 100 MCG/2 ML VL ONE ×2 (08:05→15:38)
[2021-01-09] MEDS ORDERED: diphenhdrAMINE HCL 50 MG/1 ML VL ONE (08:05)
[2021-01-09] MEDS: CLOPIDOGREL BISULFATE 75 MG TAB PO SCH (10:00)
[2021-01-09] MEDS: BISACODYL 10 MG RECT SUPP PR SCH (10:00)
[2021-01-09] MEDS: FUROSEMIDE 40 MG/4 ML VIAL IV SCH (10:00)
[2021-01-09] MEDS: PANTOPRAZOLE 40 MG TAB PO SCH (10:00)
[2021-01-09] MEDS: POLYETHYLENE GLYCOL 17 GM PWDR PO SCH (10:00)
[2021-01-09] MEDS: ASPirin 81 mg TAB PO SCH (10:00)
[2021-01-09] MEDS: ALLOPURINOL 100 MG TAB PO SCH (10:00)
[2021-01-09] MEDS: TOPIRAMATE 25 MG TAB PO SCH ×2 (10:00→22:05)
[2021-01-09] MEDS: DOCUSATE SOD 100 MG CAP PO SCH ×2 (10:00→22:00)
[2021-01-09] MEDS: ENOXAPARIN SOD 40 MG/0.4 ML SYRINGE SC SCH (10:00)
[2021-01-09] MEDS ORDERED: VANCOMYCIN 1GM/250ML 250 ML IV ONE (15:20)
[2021-01-09] MEDS ORDERED: VANCOMYCIN HCL 1000 MG VL ONE (15:20)
[2021-01-09] MEDS ORDERED: LIDOCAINE 2%HCL (LOCAL ANESTH.) INJ 20ML MDV ONE (15:34)
[2021-01-09] MEDS ORDERED: MIDAZOLAM HCL 1MG/1ML-2 ML VIAL ONE (15:38)
[2021-01-09] MEDS ORDERED: DOPamine 1600MCG/ML D5W 250 ML IV ONE (15:51)
[2021-01-09] MEDS ORDERED: ceFAZolin 1GM 2 GM in D5W 5% 100 ML IV ONE (17:05)
[2021-01-09] MEDS ORDERED: ceFAZolin 1GM/50ML 50 ML IV SCH (17:30)
[2021-01-09] MEDS: TAMSULOSIN HYDROCHLORIDE 0.4 MG CAP PO SCH (18:36)
[2021-01-09] MEDS: ATORVASTATIN 20 MG TAB PO SCH (22:00)
[2021-01-09] MEDS: INSULIN LANTUS (GLARGINE) 1 /0.01ml (100units/ml) SC SCH (22:18)
[2021-01-10] VITALS (44 sets, daily range): BP systolic 72–135; BP diastolic 22–99
[2021-01-10 00:49] LABS: Urine Amorphous Crystal FEW /hpf (None Seen); Urine Bacteria FEW /hpf (None Seen); Urine Blood Negative /uL (Negative); Urine Hyaline Cast FEW /lpf (0 - 2); Urine Specific Gravity 1.014 (1.001-1.035); Urine WBC 4 /hpf (0 - 3)
[2021-01-10] MEDS: ceFAZolin 1GM/50ML 50 ML IV SCH ×2 (01:47→10:31)
[2021-01-10] MEDS: ACETAMINOPHEN 325 MG TAB PO PRN ×2 (02:20→10:33)
[2021-01-10] MEDS: ONDANSETRON HCL 4 MG/2 ML VIAL IV PRN (05:05)
[2021-01-10] MEDS: DOPamine 1600MCG/ML D5W 250 ML IV SCH (05:05)
[2021-01-10] MEDS: MORPHINE SULF INJ 2 MG/ML SYRINGE 1ML IV PRN ×2 (05:05→05:43)
[2021-01-10 05:38] LABS: Basophils # (auto) 0 10 ^3/uL (0-0.2); Basophils % (auto) 0.5 % (0.0-2.0); Eosinophils # (auto) 0.1 10 ^3/uL (0-0.8); Eosinophils % (auto) 0.8 % (0.0-7.0); Hematocrit 38.4 % (41.0-53.0); Lymphocytes # (auto) 1.3 10 ^3/uL (0.4-5.4); Lymphocytes % (auto) 13.7 % (10.0-50.0); Mean Corpuscular Hemoglobin 33.1 pg (28.0-32.0); Mean Corpuscular Volume 97.6 fL (80.0-100.0); Monocytes # (auto) 0.8 10 ^3/uL (0-1.3); Monocytes % (auto) 8.7 % (0.0-12.0); Neutrophils # (auto) 7.3 10 ^3/uL (1.6-8.6); Neutrophils % (auto) 76.3 % (37.0-80.0); Nucleated Red Blood Cells % 0.1 %; Platelet Count (auto) 212 10^3/uL (140-450); Red Blood Cells 3.94 10^6/uL (4.5-5.90); Red Cell Distribution Width 13.5 % (11.8-14.3); White Blood Cell 9.6 10^3/uL (4.4-10.8)
[2021-01-10] MEDS: LACTULOSE 20Gm/30ML SOLN PO SCH ×4 (06:00→18:00)
[2021-01-10] MEDS: SODIUM CHLOR 0.9% PF (SALINE LOCK) 10ML VIAL/SYR IV SCH ×3 (06:22→21:13)
[2021-01-10 06:24] LABS: Potassium 3.9 mmol/L (3.5-5.1)
[2021-01-10 06:34] LABS: Albumin 2.3 g/dL (3.4-5.0); BUN/Creatinine Ratio 28.8; Bilirubin, Total 0.9 mg/dL (0.2-1.0); Calcium 7.9 mg/dL (8.5-10.1); Total Protein 6.3 g/dL (6.4-8.2)
[2021-01-10] MEDS: InsuLIN REG 1unit/0.01ml Soln (100units/ml) SC SCH ×4 (07:00→21:40)
[2021-01-10] MEDS: ACCU-CHEK COMFORT CURVE STRIP VI SCH ×4 (07:04→21:57)
[2021-01-10] MEDS: BISACODYL 10 MG RECT SUPP PR SCH (10:00)
[2021-01-10] MEDS: ASPirin 81 mg TAB PO SCH ×2 (10:00→16:54)
[2021-01-10] MEDS: CLOPIDOGREL BISULFATE 75 MG TAB PO SCH ×2 (10:00→16:54)
[2021-01-10] MEDS: FUROSEMIDE 40 MG/4 ML VIAL IV SCH ×3 (10:00→21:13)
[2021-01-10] MEDS: ENOXAPARIN SOD 40 MG/0.4 ML SYRINGE SC SCH (10:00)
[2021-01-10] MEDS: DOCUSATE SOD 100 MG CAP PO SCH ×2 (10:33→21:13)
[2021-01-10] MEDS: PANTOPRAZOLE 40 MG TAB PO SCH (10:33)
[2021-01-10] MEDS: POLYETHYLENE GLYCOL 17 GM PWDR PO SCH (10:33)
[2021-01-10] MEDS: ALLOPURINOL 100 MG TAB PO SCH (10:34)
[2021-01-10] MEDS: TOPIRAMATE 25 MG TAB PO SCH ×2 (11:24→21:15)
[2021-01-10] MEDS: TAMSULOSIN HYDROCHLORIDE 0.4 MG CAP PO SCH (18:16)
[2021-01-10] MEDS: ATORVASTATIN 20 MG TAB PO SCH (21:14)
[2021-01-10] MEDS: INSULIN LANTUS (GLARGINE) 1 /0.01ml (100units/ml) SC SCH (21:38)
[2021-01-11] VITALS: BP 131/64
== END 2021-01-11 01:12 | disposition short-term general hospital (02) | DRG 224 ==
LOC: ER 08:16 → EDBD 08:16 → EDUNIT# 08:16 → CATH 1 08:28 → ICU WEST 09:22 → UNDOADMIN 09:22 → ICU WEST 10:01 → TELE-WESTW 01-05 13:04 → ICU WEST 01-07 06:05 → TELE-WESTW 01-09 17:55 → ICU WEST 01-10 08:58
PROVIDERS: ADMIT Internal Medicine; ATTEND Internal Medicine
PROC: 02703ZZ Dilation of Coronary Artery, One Artery, Percutaneous Approach (ICD-10-PCS; principal; 2021-01-04)
PROC: 027034Z Dilation of Coronary Artery, One Artery with Drug-eluting Intraluminal Device, Percutaneous Approach (ICD-10-PCS; 2021-01-04)
PROC: B211YZZ Fluoroscopy of Multiple Coronary Arteries using Other Contrast (ICD-10-PCS; 2021-01-04)
PROC: 4A023N7 Measurement of Cardiac Sampling and Pressure, Left Heart, Percutaneous Approach (ICD-10-PCS; 2021-01-04)
PROC: 02HK3KZ Insertion of Defibrillator Lead into Right Ventricle, Percutaneous Approach (ICD-10-PCS; 2021-01-09)
PROC: 0JH608Z Insertion of Defibrillator Generator into Chest Subcutaneous Tissue and Fascia, Open Approach (ICD-10-PCS; 2021-01-09)
PROC: 02H63KZ Insertion of Defibrillator Lead into Right Atrium, Percutaneous Approach (ICD-10-PCS; 2021-01-09)
PROC: 05HC33Z Insertion of Infusion Device into Left Basilic Vein, Percutaneous Approach (ICD-10-PCS; 2021-01-09)
PROC: B54NZZA Ultrasonography of Left Upper Extremity Veins, Guidance (ICD-10-PCS; 2021-01-09)
DX: T82.855A Stenosis of coronary artery stent, initial encounter (principal); I21.19 ST elevation (STEMI) myocardial infarction involving other coronary artery of inferior wall; I50.43 Acute on chronic combined systolic (congestive) and diastolic (congestive) heart failure; N17.0 Acute kidney failure with tubular necrosis; R65.10 Systemic inflammatory response syndrome (SIRS) of non-infectious origin without acute organ dysfunction; I44.2 Atrioventricular block, complete; I45.3 Trifascicular block; I25.10 Atherosclerotic heart disease of native coronary artery without angina pectoris; E66.9 Obesity, unspecified; E11.21 Type 2 diabetes mellitus with diabetic nephropathy; G40.909 Epilepsy, unspecified, not intractable, without status epilepticus; E11.22 Type 2 diabetes mellitus with diabetic chronic kidney disease; K59.00 Constipation, unspecified; M10.9 Gout, unspecified; Z20.822 Contact with and (suspected) exposure to COVID-19; Y83.8 Other surgical procedures as the cause of abnormal reaction of the patient, or of later complication, without mention of misadventure at the time of the procedure; I25.5 Ischemic cardiomyopathy; N40.0 Benign prostatic hyperplasia without lower urinary tract symptoms; Z68.32 Body mass index [BMI] 32.0-32.9, adult; Y92.89 Other specified places as the place of occurrence of the external cause; N18.31 Chronic kidney disease, stage 3a; I11.0 Hypertensive heart disease with heart failure
CPT/HCPCS: 33225; 33249; 36415; 36600; 71045; 74018; 80048; 80053; 80061; 81001; 82805; 82962; 83036; 83605; 83735; 83880; 84443; 84484; 85025; 85610; 85730; 86850; 86900; 86901; 87081; 87426; 92920; 92928; 93005; 93306; 93458; 94640; 96361; 96374; 96375; 97163; 99152; 99153; C1874; C1887; G0378; J0690; J1815; J2250; J2405; J7060; Q9956; Q9967